=== PATIENT | female | born 1995 | race Caucasian/White ===

== ENCOUNTER 2017-05-13 10:05 | Emergency (ER) | payer MEDICAID ==
--- NOTE | 2017-05-13 10:32 | EDM.PDOC ---
ED HPI GENERAL MEDICAL PROBLEM - General Chief Complaint: Skin Complaint Stated Complaint: [id number] CYST ON SIDE Time Seen by Provider: 05/13/17 10:31 Source of Information: Reports: Patient History Limitations: Reports: No Limitations - History of Present Illness INITIAL COMMENTS - FREE TEXT/NARRATIVE: 21 yo white female c/o abdomen skin redness and drainage X 3 days. PMHx. same Onset Date: 05/10/17 Onset Time: 12:00 Duration: Day(s):, Recurring Location: Reports: Abdomen Severity: Moderate Improves with: Reports: None Worsens with: Reports: None Associated Symptoms: Reports: No Other Symptoms Left Arm Pain Score (Numeric/FACES): 7 - Related Data Allergies Allergy/AdvReac Type Severity Reaction Status Date / Time amoxicillin Allergy Rash Verified 05/13/17 10:24 clavulanic acid Allergy Rash Verified 05/13/17 10:24 [From Augmentin] sulfamethoxazole Allergy Swelling Verified 05/13/17 10:24 [From Bactrim] trimethoprim [From Bactrim] Allergy Swelling Verified 05/13/17 10:24 Home Meds: Home Meds . [No Known Home Meds] 05/13/17 [History] ED ROS GENERAL - Review of Systems Review Of Systems: See Below Constitutional: Reports: No Symptoms HEENT: Reports: No Symptoms Respiratory: Reports: No Symptoms Cardiovascular: Reports: No Symptoms Endocrine: Reports: No Symptoms GI/Abdominal: Reports: No Symptoms : Reports: No Symptoms Musculoskeletal: Reports: No Symptoms Skin: Reports: Erythema Neurological: Reports: No Symptoms Psychiatric: Reports: No Symptoms Hematologic/Lymphatic: Reports: No Symptoms Immunologic: Reports: No Symptoms ED EXAM, SKIN/RASH Exam: See Below Exam Limited By: No Limitations General Appearance: Alert, WD/WN, No Apparent Distress Eye Exam: Bilateral Eye: EOMI, PERRL Ears: Normal External Exam Nose: Normal Inspection Throat/Mouth: Normal Inspection, Normal Lips Head: Atraumatic, Normocephalic Neck: Normal Inspection, Supple, Non-Tender Respiratory/Chest: No Respiratory Distress, Lungs Clear Cardiovascular: Normal Peripheral Pulses, Regular Rate, Rhythm GI/Abdominal: Normal Bowel Sounds, Soft Back Exam: Normal Inspection Extremities: Normal Inspection, Normal Range of Motion Neurological: Alert, Oriented, CN II-XII Intact Psychiatric: Normal Affect Skin: Warm, Erythema (firm subcutaneous area 3cm) Characteristics: Macular, Erythematous Associated features: Warmth, Tenderness Lymphatic: No Adenopathy Course - Vital Signs Last Recorded V/S: Last Vital Signs Temp 37.2 C 05/13/17 10:25 Pulse 120 H 05/13/17 10:25 Resp 16 05/13/17 10:25 BP 129/77 05/13/17 10:25 Pulse Ox 97 05/13/17 10:25 Departure - Departure Time of Disposition: 10:48 Disposition: Home, Self-Care 01 Condition: Good Clinical Impression: Cellulitis Qualifiers: Site of cellulitis: trunk Site of cellulitis of trunk: abdominal wall Qualified Code(s): L03.311 - Cellulitis of abdominal wall - Discharge Information Forms: ED Department Discharge Additional Instructions: Keep area clean and dry Moist Heat to area TID X 15 mins. Medication: KEFLEX 500mg QID # 40 BACTROBAN OINT. APPLY TO AREA BID # 22g w/ one refill F/U w/ PCP
== END 2017-05-13 10:57 | disposition home or self-care (01) ==
LOC: DL.ED 10:05
DX: L03.311 Cellulitis of abdominal wall (principal); Z88.1 Allergy status to other antibiotic agents; Z88.2 Allergy status to sulfonamides
CPT/HCPCS: 99282

== ENCOUNTER 2018-06-27 20:17 | Emergency (ER) | payer OTHER | END 2018-06-27 22:45 | disposition left against medical advice (07) | LOC: DL.ED 20:17 | DX: Z53.21 Procedure and treatment not carried out due to patient leaving prior to being seen by health care provider (principal) ==